=== PATIENT | female | born 2005 | race Two or more races ===

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

== ENCOUNTER 2024-02-09 20:23 | Emergency (ER) | payer BC, SELFPAY ==
[2024-02-09 21:02] VITALS: BP 106/78; PULSE 84; RESP 18; TEMP 36.9; O2SAT 97; BMI 199.6
[2024-02-09 23:32] LABS: IDNOW Serial# 08D9AD1C; Strep A Nucleic Acid Negative (Negative)
[2024-02-10 00:23] VITALS: BP 110/70; PULSE 93; RESP 16; TEMP 36.8; O2SAT 100
--- NOTE | 2024-02-10 00:24 | ED.GENADULT ---
HPI - General Adult General Chief complaint: General Medical Stated complaint: blood in throat Time Seen by Provider: 02/10/24 00:24 Source: patient Mode of arrival: ambulatory Limitations: no limitations History of Present Illness ED Provider: LIYA HPI narrative: 18 yo female with no sig PMH here with c/o L tonsil pain and bleeding spontaneous no trauma not after eating resolved after one hour started after a cough and she felt mucous. No issues with other areas of bleeding and not on thinners. It has stopped for 3 hours. She has chronically inflamed swollen tonsils has not seen ENT. MD complaint: tonsil bleeding Onset (ago): hour(s) (8pm) Location: mouth Radiation: non-radiation Severity: mild Quality: aching Pain Consistency: constant Relieving factors: none Exacerbating factors: other Associated symptoms: denies other symptoms Treatments prior to arrival: none Related Data Previous Rx's ?Medication ?Instructions ?Recorded ibuprofen 800 mg tablet 800 mg PO Q8H PRN pain 30 days #90 09/16/23 tabs amoxicillin 875 mg-potassium 1 tab PO BID #14 tabs 02/10/24 clavulanate 125 mg tablet prednisone 20 mg tablet 40 mg (2 x 20 mg) PO DAILY 3 days 02/10/24 #6 tabs Allergies Allergy/AdvReac Type Severity Reaction Status Date / Time No Known Allergies Allergy Verified 02/09/24 21:03 Review of Systems Review of Systems: Constitutional : No Fever, No Chills, No Fatigue ENT/Mouth : No sore throat, No Rhinorrhea, pos tonsil swelling Eyes: No Eye Pain, No Swelling, No Redness Cardiovascular : No Chest Pain, No SOB, No Dyspnea on Exertion Respiratory : No Cough, No Sputum Gastrointestinal : No Nausea, No Vomiting, No Diarrhea, No abdominal Pain Musculoskeletal : No joint pain, No Myalgias, No Joint Swelling Skin : No Skin Lesions, No rash Neuro : No Weakness, No Numbness, No Dizziness, positive Headache All other systems reviewed and are negative [facility] Past Medical History Attestation statement: The following information was validated with the patient. Source: old records reviewed Medical History (Updated 02/10/24 @ 00:34 by Mag Davis DO) Acute tonsillitis Social History Social History Patient Tobacco Use Status: Never used Tobacco Smoked in Last 30 Days: No Advance Directives: No Advance Directives Information Provided: Yes Do you have a plan to hurt others: No Plan Patient : No Current occupational status: student Physical Exam ED Vital Signs: Vital Signs - 24 hr 02/09/24 21:02 02/10/24 00:23 Temperature 98.4 F 98.2 F Pulse Rate 84 93 Respiratory Rate 18 16 Blood Pressure 106/78 110/70 Pulse Oximetry 97 100 Oxygen Delivery Method Room Air Room Air BMI result Body Mass Index 199.6 Appearance: Alert. Oriented X3. No acute distress. Eyes: Pupils equal, round and reactive to light. ENT: Pharynx both tonsils swollen and vessels evident - tonsoliths on both sides no abscess and uvula midline Neck: Normal inspection. Neck supple. CVS: Normal heart rate and rhythm. Pulses normal. Respiratory: No respiratory distress. Breath sounds normal. Abdomen: Soft and non-tender. Skin: Skin warm and dry. Normal skin color. Extremities: No lower extremity edema. Neuro: Oriented X 3. No motor deficit. No sensory deficit. Medical Decision Making Medical Decision Making MDM Narrative: 18 yo patient with normal exam on arrival with reported bleeding at home she does have exudates and swelling at this time strep swab, no aspirin and precautions to return will start augmentin and prednisone with referral to ENT. No mass in neck no other bruising reported and no blood in oropharynx noted. Differential Diagnosis Differential Diagnoses: The differential diagnosis associated with the presentation includes tonsillitis, capillary bleed, no abscess, no other sites of bleeding Admission/Observation Consideration of admission/observation: Escalation of care including admission/observation considered no bleeding x 3 hours other than tonsillitis normal exam Lab Data Labs: Lab Results 02/09/24 Range/Units 22:47 S. pyogenes GrpA WARREN Negative (Negative) External Record Review External record reviewed: Office record Prescription Management I considered prescription management with: Antibiotic and Other Discharge Plan Discharge Clinical Impression: Acute tonsillitis Qualifiers: Pharyngitis/tonsillitis etiology: unspecified etiology Qualified Code(s): J03.90 - Acute tonsillitis, unspecified Patient Disposition: Home, Self-Care Instructions: Tonsillitis (ED) Additional Instructions: no aspirin avoid strenous lifting please see the ENT number as listed below call ENT [address] [place] [address] [phone] return for any worsening symptoms or concerns or if you notice any other signs of bleeding Prescriptions: New prednisone 20 mg tablet 40 mg PO DAILY 3 Days Qty: 6 0RF amoxicillin-pot clavulanate 875-125 mg tablet 1 tab PO BID Qty: 14 0RF No Action ibuprofen 800 mg tablet 800 mg PO Q8H PRN (Reason: pain) 30 Days Qty: 90 3RF Stand Alone Forms: Work/School Release Print Language: Senegalese
[2024-02-10 00:38] VITALS: BP 110/70; PULSE 93; RESP 16; TEMP 36.8; O2SAT 100
== END 2024-02-10 00:40 | disposition home or self-care (01) ==
PROVIDERS: Emergency Provider Emergency Medicine
DX: J03.90 Acute tonsillitis, unspecified (principal); R07.0 Pain in throat
CPT/HCPCS: 87651; 99283; 99284

== ENCOUNTER 2024-12-02 11:27 | Outpatient (AMB) | payer BC, SELFPAY ==
--- NOTE | 2024-12-02 11:42 | A.OFFVIS_ITS ---
Intake Visit Reasons: OV LT knee pain Intake Note: Dian is an 17 year old female who presents today for a follow up of left knee pain. At her last visit on 11/21/23 she was recommended to continue attending physical therapy and follow up as needed. Patient reports physical therapy did not help with her pain. States her pain has gotten worse since her last visit. She is now experiencing shooting pain that travels up and down her leg. Difficulty with walking and standing. Her knee gives out, frequent. Allergies No Known Allergies Allergy (Verified 12/02/24 11:47) Medication List - Last Reconciled 12/04/24 by Cecille Rod PA-C naproxen 500 mg PO BID 30 days HPI HPI OV LT knee pain: Details: 18-year-old female presents to the office today for left knee pain. She states the pain is located along the anterior aspect of the knee which is worse with stair use and bending activities. She has done physical therapy and used a knee brace in the past which does help but she continues to have residual discomfort. She also had an MRI of the knee which was negative for any ligamentous or cartilaginous tears. [facility] Medical History (Updated 02/11/24 @ 00:00 by Cristian Anderson) Acute tonsillitis Social History Patient Tobacco Use Status: Never used Tobacco Current occupational status: student Review of Systems Const All systems reviewed & are unremarkable except as noted in HPI and below Physical Exam Const General: cooperative, healthy appearing, comfortable, no acute distress, well developed and alert Orientation/consciousness: patient oriented x3 HEENT Head: Yes normal to inspection, Yes normocephalic and Yes atraumatic Eyes General: appearance normal, both eyes and all related structures Resp Effort & Inspection: normal respiratory effort and able to speak in complete sentences Cardio Rate: regular rate Peripheral pulses: Peripheral pulses 2+ throughout GI Palpation (GI): Soft to palpation Skin Lesions: no lesions Rashes: no rashes Neuro General: patient oriented x3 Extrem Other: Left knee: Skin intact, no erythema or joint effusion. Retropatellar tenderness present. Full ROM with crepitus. Negative Lydia?s. No ligamentous laxity. NVI. Assessment & Plan Assessment & Plan (1) Chondromalacia of left knee: Code(s): M94.262 - Chondromalacia, left knee Category: Medical Plan: Reassurance given to the patient today her symptoms are likely due to overuse and deconditioning. I did reiterate the importance of strengthening conditioning exercises. I also discussed the benefit of anti-inflammatories and send her a prescription for naproxen 500 mg b.i.d.. We also discussed the role of steroid injection which I have a low threshold to doing given her age but as a 1 time thing it may be beneficial to help reduce her flare-up. At this time we will continue with conservative management and if she decides to pursue steroid injection she can contact our office for an appointment otherwise she will follow up as needed. Medications: New naproxen 500 mg PO BID 60 tabs 3RF 30 days S93.409A - Sprain of unspecified ligament of unspecified ankle, initial encounter Coding Level of Care Code Est Pt Level 3 (41022) Complex EM visit Add On G2211 Diagnoses Chondromalacia of left knee M94.262
--- OUTSIDE RECORDS SUMMARY | 2024-12-02 12:25 | XMS_ITS | Clinical Summary ---
Author Organization [facility] Address [address] [place] [address] Care Team Providers Care Payroll Assistant Name Role Phone Unavailable Primary Care Provider Unavailabl e Source Comments [facility],non-owned Affiliates and Associated Physician Practices is amultiple site organization consisting of ambulatory clinics and hospital sitesin [place], [place], [place] and [place]. This disclosure is being madepursuant to the Care Everywhere program and may not contain all information available regarding this patient. Last updated 18.[facility] Medications * Be aware that medications may not be up to date on this document. Alwaysverify current medications with the patient. nitrofurantoin monohyd macro crystals (Macrobid) 100 MG capsule Take 1 capsule by mouth every 12 hours for 5 days. 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 Gender Identity Not on file Sexual Orientation Not on file Plan of Treatment Upcoming Encounters Date Type Department Care Team (Late st Contact Info) Description 12/14/2024 1:30 PM CDT Office Visit [facility] [address] [place] [phone] [place] [id number] [place] [phone] Health Maintenance Due Date Last Done Comments HIV SCREENING 12/14/2019 HPV VACCINE (1 - 3-dose series) 12/14/2019 CHLAMYDIA/GONORRHEA SCREENING 2020 MENINGOCOCCAL (Group B) VACC INE SHARED DECISION-MAKING (1 of 2 - Standard) 2020 HEPATITIS C SCREENING 12/09/2022 DTAP/TDAP/TD VACCINES (1 - Tdap) 12/14/2023 HEPATITIS B VACCINE (1 of 3 - 19+ 3-dose series) 12/14/2023 COVID-19 VACCINE (1 - 2023-2 5 season) 2024 DEPRESSION SCREENING 05/13/2024 INFLUENZA VACCINE (#1) 2025 ZOSTER VACCINE (1 of 2) 2054 HIB VACCINE Aged Out No longer eligi ble based on patient's age to complete this topic MENINGOCOCCAL GROUPS A/C/Y/W VACCINE Aged Out No longer eligible b ased on patient's age to complete this topic PNEUMOCOCCAL VACCINE Aged Out No long er eligible based on patient's age to complete this topic
--- OUTSIDE RECORDS SUMMARY | 2024-12-02 12:25 | XMS_ITS | Clinical Summary ---
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
--- OUTSIDE RECORDS SUMMARY | 2024-12-02 12:25 | XMS_ITS | Clinical Summary ---
Author Organization [facility] Address [facility] [place] [address] Care Team Providers Care Meeting Planner Name Role Phone Fely Moore MD Primary Care Provider Fely Moore MD Unavailable [phone] Allergies No known active allergies Medications No known medications Active Problems No known active problems Immunizations Immunization Administration Dates Next Due DTaP 04/30/2009, 7,11/14/2005,08/16,05/07/2005 H1N1 Inj 04/30/2009 HPV9 01/02/2022,12/18/2018 Hep A, Pediatric 04/30/2008,11/14/2006 Hep B, Adolescent or Pediatric 11/14/2005,2005,05/07/2005 HiB 11/14/2005,08/16/2005,05/07/2005 IPV 04/30/2009, 6,08/16/2005,05/07 Influenza LAIV (Nasal) 01/25/2014,2012,02/11/2010,01/12 Influenza, Quadrivalent, Spl it, Preservative Free, Intramuscular 01/31/2015,01/17/2013,04/30/2008,02/12,05/14/2006 Influenza, Unspecified 06/30/2016 MMR 12/21/2009,05/14/2006 Meningococcal A,C,W,Y-TT (Ak a Menquadfi) 01/02/2022 Meningococcal B, Recombinant (Trumenba) 12/31/2022,01/22/2022 Meningococcal MCV4P (Menactra) 06/30/2016 Pneumococcal Conjugate PCV 13 02/12/2007, 007 Tdap 01/31/2015 Varicella 12/21/2009,05/14/2006 Social History Tobacco Use Types Packs/Day Years Used Date Smoking Tobacco: Never PHQ-2 Answer Date Recorded PHQ-2 Total Score (If total score is 3 or more points, staff should administer the PHQ-9) 2 12/31/2022 Personal Safety Answer Date Recorded Getting School Help Needed Not on file 07/26 Comments Unknown Sex and Gender Information Value Date Recorded Sex Assigned at Not on file Legal Sex Female 1:21 AM [employer] Gender Identity Not on file Sexual Orientation Not on file Obstetrics History Growth Chart Information Age Height Weight [id number] th Percentile BMI Percentile Head Circum Head Circum Percentile Date 17 years 163.8 cm (5' 4.49 ) 48.6 kg (107 lb 3.2 oz) 9.34%* 2022 16 years 163.8 cm (5' 4.5 ) 48.9 kg (107 lb 12.8 oz) 13.54%* 2021 14 years 162.6 cm (5' 4 ) 56.7 kg (125 lb) 63.58%* 2020 11 years 165.1 cm (5' 5 ) 44 kg (97 lb) 17.23%* 2016 * [facility] (Girls, 2-20 Years) Last Filed Vital Signs Vital Sign Reading Time Taken Comments Blood Pressure 122/76 12/31/2022 2:55 PM CDT Pulse 108 12/31/2022 2:55 PM CDT Temperature 37.4 C (99.3 F) 09/18/2021 4:29 PM CDT Respiratory Rate - - Oxygen Saturation - - Inhaled Oxygen Concentration - - Weight 48.6 kg (107 lb 3.2 oz) 12/31/2022 2:55 P M CDT Height 163.8 cm (5' 4.49 ) 12/31/2022 2:55 PM CD T Body Mass Index 18.12 12/31/2022 2:55 PM CDT Body Mass Index Percentile 9.34% 12/31/2022 2:5 5 PM CDT Growth Chart: [facility] (Girls, 2- 20 Years) Plan of Treatment Health Maintenance Due Date Last Done Comments Hepatitis C Screening 2004 Depression Screening 01/01/2024 12/31/2022, 01/23/20 22 Regular Well Visit/Exam 18-64 01/01/2024 12/31/2022 Covid-19 Vaccine (2023-2 5 season) 2024 05/08/2021 Influenza Vaccine (Season Ended) 2025 06/30/2016, 01/31/2015, 01/25/2014, Additional history exists DTaP/Tdap/Td Vaccine (7 - Td or Tdap) 01/31/2025 01/31/2015, 04/30/2009, 02/12/2007, Additional history exists Hepatitis B Screening Completed 11/14/2005 , 08/16/2005, 05/07/2005 Pneumococcal vaccine <65 Completed 02/12/2007, 06/2006 Varicella Vaccines Completed 12/21/2009, 05/14/2006 HPV Vaccines Completed 01/02/2022, 12/18/2018 Meningococcal Vaccine Completed 01/02/2022, 017 Meningococcal B Vaccine Completed 12/31/2022, 01/22 Insurance [facility] SERVICES [facility] [id number] [employer] [place] [id number] [employer] [place] [employer] Care Teams Meeting Planner Relationship Specialty Start Date End Date Fely Moore MD PCP - General 04/25/17 Fely Moore MD Referring Physician Pediatrics 07/31/22
== END 2024-12-02 12:33 | disposition home or self-care (01) ==
LOC: HO.HOS 11:28
PROVIDERS: Visit Provider Physician Assistant
DX: M94.262 Chondromalacia, left knee (principal)
CPT/HCPCS: 99213